=== PATIENT | male | born 1965 | race Caucasian/White ===

== ENCOUNTER 2022-01-15 07:20 | Day surgery (SDC) | payer OTHER ==
[~2022-01-15] VITALS: Ht 182.9 cm; Wt 108.9 kg
[2022-01-15 07:59] LABS: HEMATOCRIT 41.4 % (39.0-50.0); HEMOGLOBIN 13.8 g/dl (14.0-18.0); IMMATURE GRANULOCYTES 0.4 % (0.0-5.0); MEAN CELL VOLUME 85.7 fL CALC (80.0-100.0); MEAN CORPUSCULAR HGB 28.6 pG CALC (26.0-32.0); MEAN CORPUSCULAR HGB CONC 33.3 g/dL CAL (32.0-36.0); NEUT# 2.45 thou/uL (1.82-7.42); RED BLOOD COUNT 4.83 mill/uL (4.70-6.10); RED CELL DISTRI WIDTH 13.3 % (11.5-15.5)
[2022-01-15 08:17] LABS: ALBUMIN 4.8 g/dL (3.2-5.0); ALKALINE PHOSPHATASE 80 u/l (38-126); ANION GAP 13 (6-22 (CALC)); BILIRUBIN, TOTAL 0.9 mg/dL (0.0-1.4); BUN 13 mg/dL (9-20); BUN/CREATININE RATIO 11 (12-20 (CALC)); CARBON DIOXIDE 29 mmol/l (22-30); CHLORIDE 105 mmol/l (95-108); CREATININE 1.2 mg/dL (0.7-1.3); GFR FOR AFR.AMER. > 60 ML/MIN (>=60 (CALC)); GFR OTHER RACES > 60 ML/MIN (>=60 (CALC)); POTASSIUM 3.9 mmol/l (3.5-5.1); SGOT/AST 40 u/l (17-59); SODIUM 142 mmol/l (137-146); TOTAL PROTEIN 7.8 g/dL (6.3-8.2)
[2022-01-15] MEDS ORDERED: SEROQUEL25 MG PO (08:35)
[2022-01-15] MEDS ORDERED: LAMOTRIGINE200 MG PO (08:36)
[2022-01-15] MEDS ORDERED: AVAPRO150 MG PO (08:37)
[2022-01-15] MEDS ORDERED: ATORVASTATIN CA40 MG PO (08:37)
[2022-01-15] MEDS ORDERED: AMLODIPINE BESY10 MG PO (08:38)
[2022-01-15 09:10] VITALS: BP 105/68
[2022-01-15] MEDS ORDERED: KLONOPIN2 MG PO (13:27)
[2022-01-15] MEDS ORDERED: CLONIDINE0.1 MG PO (13:27)
[2022-01-15] MEDS ORDERED: NALTREXONE50 MG PO (13:27)
[2022-01-15 18:45] VITALS: BP 139/85
[2022-01-15 22:58] VITALS: BP 103/73
[2022-01-16 03:38] VITALS: BP 120/68
[2022-01-16 05:32] LABS: HEMATOCRIT 38.3 % (39.0-50.0); IMMATURE GRANULOCYTES 0.6 % (0.0-5.0); MEAN CELL VOLUME 84.4 fL CALC (80.0-100.0); MEAN CORPUSCULAR HGB 28.6 pG CALC (26.0-32.0); MEAN CORPUSCULAR HGB CONC 33.9 g/dL CAL (32.0-36.0); NEUT# 6.13 thou/uL (1.82-7.42); RED BLOOD COUNT 4.54 mill/uL (4.70-6.10); RED CELL DISTRI WIDTH 13.4 % (11.5-15.5)
[2022-01-16 05:55] LABS: ALBUMIN 4.6 g/dL (3.2-5.0); ALKALINE PHOSPHATASE 74 u/l (38-126); ANION GAP 16 (6-22 (CALC)); BILIRUBIN, TOTAL 0.8 mg/dL (0.0-1.4); BUN 13 mg/dL (9-20); BUN/CREATININE RATIO 12 (12-20 (CALC)); CARBON DIOXIDE 25 mmol/l (22-30); CHLORIDE 107 mmol/l (95-108); GFR FOR AFR.AMER. > 60 ML/MIN (>=60 (CALC)); GFR OTHER RACES > 60 ML/MIN (>=60 (CALC)); MAGNESIUM 2.3 mg/dL (1.6-2.3); SGOT/AST 38 u/l (17-59); SODIUM 144 mmol/l (137-146); TOTAL PROTEIN 7.3 g/dL (6.3-8.2)
[2022-01-16 07:47] VITALS: BP 129/67
[2022-01-16 13:30] VITALS: BP 138/83
== END 2022-01-16 13:15 | disposition home or self-care (01) | DRG 897 ==
LOC: EDSEX 07:20 → ANR 07:20 → MS2 07:29 → ANR 11:00
PROVIDERS: ATTEND Anesthesiology
DX: F11.20 Opioid dependence, uncomplicated (principal)
CPT/HCPCS: J2354